=== PATIENT | male | born 1955 | race Caucasian/White ===

== ENCOUNTER → 2018-07-23 | Outpatient (CLI) | payer OTHER | LOC: EMCIMAGING 08:41 | PROVIDERS: ATTEND Internal Medicine | DX: K80.20 Calculus of gallbladder without cholecystitis without obstruction (principal); N40.0 Benign prostatic hyperplasia without lower urinary tract symptoms; R31.9 Hematuria, unspecified | CPT/HCPCS: 76700-PN; 76857-PN ==

== ENCOUNTER → 2018-08-06 | Outpatient (CLI) | payer OTHER | LOC: EMCIMAGING 08:20 | PROVIDERS: ATTEND Internal Medicine | DX: I25.10 Atherosclerotic heart disease of native coronary artery without angina pectoris (principal); R91.1 Solitary pulmonary nodule; K44.9 Diaphragmatic hernia without obstruction or gangrene; K80.20 Calculus of gallbladder without cholecystitis without obstruction | CPT/HCPCS: 71250-PN ==

== ENCOUNTER 2018-08-23 07:51 | Day surgery (SDC) | payer OTHER ==
[2018-08-23] MEDS ORDERED: ceFAZolin 2 GM/DEXTROSE 100 ML IV ONE (07:58)
[2018-08-23] MEDS ORDERED: LR 1,000 ML IV ONE (08:01)
[2018-08-23] MEDS ORDERED: LIDOCAINE 1% 2 ML INJ ID PRN (08:01)
[2018-08-23] MEDS ORDERED: BUPIVACAINE 0.5% 30 ML SDV ONE (09:54)
--- NOTE | 2018-08-23 10:36 | PDHPUP ---
History & Physical Update H&P update statement: This history and physical update is based on an assessment of the patient which was completed after admission or registration (within 24 hours), but prior to the surgery/procedure. H&P update: H&P reviewed & patient examined, no change in patient's condition since H&P completed
[2018-08-23] MEDS ORDERED: PROPOFOL/EMULSION 500 MG/50 ML BOTTLE IV ONE ×2 (10:44→12:18)
[2018-08-23] MEDS ORDERED: fentaNYL 250 MCG/5 ML INJ ONE (10:47)
--- NOTE | 2018-08-23 11:00 | PDANEPAE ---
ANE History of Present Illness 63 year old male for Bilateral inguinal hernia repair, robot assisted. Otherwise he is healthy. ANE Past Medical History - Cardiovascular History Hx Hypertension: No Hx Arrhythmias: No Hx Chest Pain: No Hx Coronary Artery / Peripheral Vascular Disease: No Hx CHF / Valvular Disease: No Hx Palpitations: No - Pulmonary History Hx COPD: No Hx Asthma/Reactive Airway Disease: No Hx Recent Upper Respiratory Infection: No Hx Oxygen in Use at Home: No Hx Sleep Apnea: No Sleep Apnea Screening Result - Last Documented: Positive Pulmonary History Comment: PNEUMONIA IN PAST. ALLERGIES - Neurologic History Hx Cerebrovascular Accident: No Hx Seizures: No Hx Dementia: No - Endocrine History Hx Diabetes: No Endocrine History Comment: HYPOTHYROID - Renal History Hx Renal Disorders: No - Liver History Hx Hepatic Disorders: No - Neurological & Psychiatric Hx Hx Neurological and Psychiatric Disorders: No - Cancer History Hx Cancer: No - Congenital Disorder History Hx Congenital Disorders: No - GI History Hx Gastrointestinal Disorders: No - Other Health History Other Health History: NEG - Chronic Pain History Chronic Pain: No - Surgical History Prior Surgeries: ACL REPAIR R. HIP REPAIR L ANE Review of Systems Review of systems is: negative Review of Systems: - Exercise capacity METS (RN): 5 METS ANE Patient History - Allergies Allergies/Adverse Reactions: Penicillins Allergy (Verified 08/20/18 09:32) - Home Medications Home Medications: Aspirin 08/20/18 [Last Taken 5 Days Ago ~08/18/18] Flonase Nasal [place] 08/20/18 [Last Taken 1 Day Ago ~08/22/18] Herbals/Supplements -Info Only 08/20/18 [Last Taken 5 Days Ago ~08/18/18] Levothyroxine 08/20/18 [Last Taken 08/23/18 05:30] - NPO status NPO Since - Liquids (Date): 08/22/18 NPO Since - Liquids (Time): 22:00 NPO Since - Solids (Date): 08/22/18 NPO Since - Solids (Time): 19:30 - Smoking Hx Smoking Status: Never smoked ANE Labs/Vital Signs - Vital Signs Blood Pressure: 111/71 Heart Rate: 60 Respiratory Rate: 18 O2 Sat (%): 95 Height: 172.72 cm Weight: 79.379 kg ANE Physical Exam - Airway Neck exam: FROM Mallampati Score: Class 2 Mouth exam: normal dental/mouth exam - Pulmonary Pulmonary: no respiratory distress - Cardiovascular Cardiovascular: regular rate and rhythym - ASA Status ASA Status: I ANE Anesthesia Plan Anesthesia Plan: general endotracheal anesthesia
[2018-08-23] MEDS ORDERED: LABETALOL HCL 5 MG/ML 20 ML MDV IVP PRN (11:13)
[2018-08-23] MEDS ORDERED: NALOXONE HCL 0.4 MG/ML INJ IVP PRN (11:13)
[2018-08-23] MEDS ORDERED: fentaNYL 100 MCG/2 ML INJ IVP PRN (11:13)
[2018-08-23] MEDS ORDERED: ONDANSETRON 4 MG/2 ML VIAL IVP PRN (11:13)
[2018-08-23] MEDS ORDERED: HYDROmorphONE/DILAUDID 1 MG/ML INJ IVP PRN (11:13)
[2018-08-23] MEDS ORDERED: DEXAMETHASONE 4 MG/ML VIAL IVP PRN (11:13)
[2018-08-23] MEDS ORDERED: LR 500 ML IV PRN (11:13)
[2018-08-23] MEDS ORDERED: oxyCODONE IR 5 MG TAB PO PRN (11:13)
[2018-08-23] MEDS ORDERED: PHENYLEPHRINE HCL 100 MCG/ML SYR IVP PRN (11:18)
[2018-08-23] MEDS ORDERED: MEPERIDINE 25 MG/0.5 ML AMP IVP PRN (11:18)
[2018-08-23] MEDS ORDERED: ONDANSETRON 4 MG/2 ML VIAL ONE (11:32)
[2018-08-23] MEDS ORDERED: DEXAMETHASONE 4 MG/ML VIAL ONE (11:32)
[2018-08-23] MEDS ORDERED: ROCURONIUM 50 MG/5 ML VIAL ONE ×2 (11:32→11:54)
--- NOTE | 2018-08-23 14:25 | POSTANESTH ---
Post Anesthetic Evaluation Cardiovascular Status: Normal, Stable Respiratory Status: Normal, Stable Level of Consciousness/Mental Status: Mildly Sleepy, Arousable Pain Control: Adequate, Prn Tx Ordered Nausea/Vomiting Control: Adequate, Prn Tx Ordered Complications Possibly Related to Anesthesia: None Noted
[2018-08-23] MEDS ORDERED: fentaNYL 100 MCG/2 ML INJ ONE (14:31)
[2018-08-23] MEDS ORDERED: oxyCODONE IR 5 MG TAB ONE (14:47)
[2018-08-23 15:04] VITALS: BP 108/58
--- NOTE | 2018-08-23 15:08 | POSTOPPROG ---
Post Op Note Date of Operation: 08/23/18 Surgeon: Anders Mitchell Carpet Or Rug Layer Helper: Akbar Anesthesiologist: Clayton Anesthesia: GET(General Endotracheal) Pre-op Diagnosis: BIH Post-op Diagnosis: same Indication: same Procedure: Robotic BIH repair with mesh Inf/Abcess present in the surg proc area at time of surgery?: No Depth: Organ Space EBL: Minimal Bowel Protocol: N/A Clean Closure Performed: N/A
--- NOTE | 2018-08-25 15:53 | GOP ---
[f rep st] OPERATIVE REPORT DATE OF OPERATION: SURGEON: Anders Mitchell MD ARMAMENT MECHANIC: Iraida Webber NP. ANESTHESIA: Dr. Janna Arnold. He was taken to the recovery room in good condition. There were no complications. PREOPERATIVE DIAGNOSIS: Bilateral inguinal hernias. POSTOPERATIVE DIAGNOSIS: Bilateral inguinal hernias. PROCEDURE PERFORMED: ROBOTIC ASSISTED LAPAROSCOPIC BILATERAL INGUINAL HERNIA REPAIR FINDINGS: Patient was found to have bilateral direct defects. There were no indirect sacs. The left side was much larger than the right. ESTIMATED BLOOD LOSS: Negligible. DESCRIPTION OF PROCEDURE: The patient was taken to the operating room where he received a satisfactory general endotracheal anesthesia by Dr. Arnold. He was placed in the supine position in slight Trendelenburg. A short incision was made just above the umbilicus. A Veress needle inserted. Pneumoperitoneum was established. Trocar was introduced. Good visualization was obtained. Two other trocars were placed on either side laterally under direct vision. After these were positioned, the robot was brought in and docked to the camera port. The area was targeted. After adequate targeting was completed, instruments were introduced from the side port. The pelvis was visualized. A long arcing incision was made over the pelvis and over the inguinal areas, opening up the preperitoneal space from 1 side to the other. The flap was then carefully dissected away from the musculature of the vessels and cord on both sides. The pubis was exposed and Lamin's ligament was exposed on both sides. The direct hernia sacs were dissected free and reduced and the cord structures were freed up from any attachments. The peritoneum exposure was adequate. The bilateral 3D light mesh patches were introduced and positioned over the inguinal floor. They were anchored with interrupted 3-0 silk sutures securing them to the lacunar ligament, to the inguinal ligament and to the anterior fascia. These meshes were positioned in the inguinal pockets, which had been developed after both sides were secured in position. Hemostasis was assured and the peritoneal flap was then closed with a running 2-0 V-Loc suture closing the entire defect. Hemostasis was assured. Trocars removed under direct vision. Trocar sites were closed with 0 Vicryl for the fascia and 4-0 Monocryl subcuticular stitch for the skin. All layers infiltrated with 0.5% Marcaine. PROCEDURE: Robotic-assisted laparoscopic transperitoneal bilateral inguinal hernia repairs. COUNTS: Sponge, needle counts were completed and the x-ray was done showing no retained foreign bodies. /[id number]/MODL MTDD
== END 2018-08-23 15:30 | disposition home or self-care (01) ==
LOC: FSGY 07:51
PROVIDERS: ATTEND Surgery
PROC: 0WUF4JZ Supplement Abdominal Wall with Synthetic Substitute, Percutaneous Endoscopic Approach (ICD-10-PCS; principal; 2018-08-23 09:45)
PROC: 8E0W4CZ Robotic Assisted Procedure of Trunk Region, Percutaneous Endoscopic Approach (ICD-10-PCS; principal; 2018-08-23 09:45)
DX: K40.20 Bilateral inguinal hernia, without obstruction or gangrene, not specified as recurrent (principal); E03.9 Hypothyroidism, unspecified
CPT/HCPCS: C1781; J0690; J1100; J2405; J2704; J3010